=== PATIENT | male | born 1990 | race Caucasian/White ===

== ENCOUNTER 2016-06-17 21:40 | Emergency (ER) | payer OTHER ==
[~2016-06-17 21:40] MED LIST: ALBUTEROL17 GM INH; COMBIVENT U/D3 M1 INH; DOXYCYCLINE150 MG PO; PREDNISONE PO; SYMBICORT INH; TESSALON PERLE100 M1 PO
== END 2016-06-17 21:52 | disposition home or self-care (01) ==
LOC: SED 21:40
DX: J45.901 Unspecified asthma with (acute) exacerbation (principal); F17.200 Nicotine dependence, unspecified, uncomplicated
CPT/HCPCS: 99282

== ENCOUNTER 2016-10-13 09:37 | Emergency (ER) | payer OTHER ==
--- NOTE | ~2016-10-13 | CR63 ---
[facility]. [facility] A Service of [facility] & [facility] RADIOLOGY TEXT RESULTS PATIENT: ODETTE BEACH LOCATION: SED : [birth year] UNIT #: [id number] AGE: [address]: SAMMY GREENE SEX: M ORDER DR: [id number] [address] [address] [id number] E MR#: [id number] Acc #: [id number] NAME: ODETTE BEACH : 1990 SEX: M STUDY DATE/TIME: 10/13/2016 10:40 UNIT: SED ROOM: STUDY DESCRIPTION: CR Chest 2 View Attending Physician: (Res) Sammy Greene Ordering Physician: Alphonso Cortés M.D. Primary Care Physician: No Primary Care Physician MEDICAL IMAGING REPORT This report is preliminary unless electronic signature is present. EXAM Chest, 2 views, 10/13/2016, 1040 hours. HISTORY 26-year-old man with 2-week history of cough and congestion. COMPARISON None FINDINGS Upright PA and lateral views of the chest demonstrate normal cardiac, mediastinal and hilar contours. The lungs are hyperinflated, but clear. There is no effusion or mass. IMPRESSION Pulmonary hyperinflation with clear lungs. No effusion or pneumothorax. Dictated by... Kate Arzola M.D. THIS IS AN ELECTRONICALLY VERIFIED REPORT Kate Arzola M.D. at 10/14/2016 9:22 AM Uma TD: 10/13/2016 18:32 JOB #: [id number] MEDICAL IMAGING REPORT Page 1 of 1
[2016-10-13] MEDS ORDERED: ATROVENT NEB (09:51)
== END 2016-10-13 11:22 | disposition home or self-care (01) ==
LOC: SED 09:37
DX: J45.901 Unspecified asthma with (acute) exacerbation (principal); L30.9 Dermatitis, unspecified; J30.2 Other seasonal allergic rhinitis; F17.200 Nicotine dependence, unspecified, uncomplicated; Z79.899 Other long term (current) drug therapy
CPT/HCPCS: 71020; 94640; 99283